=== PATIENT | female | born 1960 | race Caucasian/White ===

== ENCOUNTER 2022-04-21 10:52 | Outpatient (CLI) | payer OTHER | END 2022-04-21 10:53 | disposition home or self-care (01) | LOC: BICMAMMO 10:52 | PROVIDERS: ATTEND Internal Medicine | DX: Z12.31 Encounter for screening mammogram for malignant neoplasm of breast (principal) | CPT/HCPCS: 77063; 77067 ==

== ENCOUNTER 2022-11-03 08:57 | Outpatient (CLI) | payer OTHER ==
[2022-11-03] MEDS ORDERED: Iopamidol 370 76% 100 ML VIAL ONE (11:56)
== END 2022-11-03 08:58 | disposition home or self-care (01) ==
LOC: BICCT 08:57
PROVIDERS: ATTEND Surgery
DX: K43.2 Incisional hernia without obstruction or gangrene (principal); K44.9 Diaphragmatic hernia without obstruction or gangrene; Z90.49 Acquired absence of other specified parts of digestive tract
CPT/HCPCS: 74177; 82565